=== PATIENT | female | born 1970 | race Caucasian/White ===

== ENCOUNTER 2018-10-04 09:38 | Inpatient (IN) | payer OTHER ==
[~2018-10-04] VITALS: Ht 177.8 cm; Wt 78.0 kg
[2018-10-04] MEDS ORDERED: ASPIRIN 81 MG TABLET CHEW ONE (10:24)
[2018-10-04] MEDS ORDERED: SODIUM CHLORIDE FLUSH 10ML SYR IVF ONE (10:30)
[2018-10-04] MEDS ORDERED: ASPIRIN 81 MG TABLET CHEW PO ONE (10:30)
[2018-10-04 10:37] LABS: BASOPHILS # (AUTO) 0.11 x10^3/uL (0-0.1); BASOPHILS % (AUTO) 2 % (0-1); EOSINOPHILS # (AUTO) 0.16 x10^3/uL (0-0.4); EOSINOPHILS % (AUTO) 2 % (1-7); LYMPHOCYTES # (AUTO) 2.05 x10^3/uL (1-3.4); LYMPHOCYTES % (AUTO) 29 % (22-44); MD NO; MEAN CORPUSCULAR HEMOGLOBIN 24.8 pg (27.0-34.8); MEAN CORPUSCULAR HGB CONC 32.3 g/dL (32.4-35.8); MEAN CORPUSCULAR VOLUME 76.8 fL (80-100); MEAN PLATELET VOLUME 8.9 fL (7.4-10.4); MONOCYTES # (AUTO) 0.48 x10^3/uL (0.2-0.8); MONOCYTES % (AUTO) 7 % (2-9); NEUTROPHILS % (AUTO) 60 % (42-75); PLATELET COUNT 353 x10^3/uL (130-400); RED CELL DISTRIBUTION WIDTH 18.5 % (9.6-15.2)
[2018-10-04 10:48] LABS: ALBUMIN 3.5 g/dL (3.4-5.0); ANION GAP 9 mmol/L (5-15); CALCIUM 8.7 mg/dL (8.5-10.1); CHLORIDE 107 mmol/L (98-107); CREATININE 0.74 mg/dL (0.55-1.02)
[2018-10-04 11:03] LABS: TROPONIN I 0.121 ng/mL (0.000-0.045)
[2018-10-04] MEDS ORDERED: NITROGLYCERIN OINT 2%, 1GM TP ONE ×2 (11:56→12:00)
[2018-10-04] MEDS ORDERED: GLUCAGON 1 MG IM PRN (12:00)
[2018-10-04] MEDS ORDERED: TEMAZEPAM 15 MG CAPSULE PO PRN (12:00)
[2018-10-04] MEDS ORDERED: LABETALOL 5MG/ML, 20ML IVPush PRN (12:00)
[2018-10-04] MEDS ORDERED: SODIUM CHLORIDE FLUSH 10ML SYR IVF PRN (12:00)
[2018-10-04] MEDS ORDERED: NITROGLYCERIN 0.4 MG BOTTLE (25 TABS) SL PRN (12:00)
[2018-10-04] MEDS ORDERED: ONDANSETRON ODT 4 MG PO PRN (12:00)
[2018-10-04] MEDS: NICOTINE 7 MG/24 HR PATCH.TD24 TD SCH (12:00)
[2018-10-04] MEDS ORDERED: DEXTROSE 4 GM TAB.CHEW PO PRN (12:00)
[2018-10-04] MEDS ORDERED: NITROGLYCERIN 0.4 MG/SPRAY SL PRN (12:00)
[2018-10-04] MEDS ORDERED: ENALAPRILAT 1.25 MG/ML, 2ML IVPush PRN (12:00)
[2018-10-04] MEDS: INSULIN LISPRO 100 UNITS/ML, PEN SQ-INSULIN SCH ×3 (12:00→21:18)
[2018-10-04] MEDS ORDERED: ONDANSETRON 2MG/ML, 2ML IVPush PRN (12:00)
[2018-10-04] MEDS ORDERED: DEXTROSE 50%, 50ML SYRINGE IVPush PRN (12:00)
[2018-10-04 12:50] VITALS: BP 200/109
[2018-10-04 13:01] LABS: TROPONIN I 0.123 ng/mL (0.000-0.045)
[2018-10-04 13:13] LABS: HEMOGLOBIN A1C 8.6 % (4.2-6.3)
[2018-10-04] MEDS ORDERED: LISINOPRIL 20 MG TABLET ONE (13:13)
[2018-10-04] MEDS: LISINOPRIL 20 MG TABLET PO SCH (13:16)
[2018-10-04 13:55] VITALS: BP 170/91
[2018-10-04] MEDS: ACETAMINOPHEN 325 MG TABLET PO PRN ×2 (16:05→21:18)
[2018-10-04 17:27] VITALS: BP 159/82
[2018-10-04 18:50] LABS: TROPONIN I 0.109 ng/mL (0.000-0.045)
[2018-10-04 19:24] VITALS: BP 110/72
[2018-10-04] MEDS ORDERED: ATORVASTATIN 80 MG TABLET PO SCH (21:00)
[2018-10-04 21:12] VITALS: BP 145/88
[2018-10-04] MEDS: METOPROLOL TARTRATE 50 MG TABLET PO SCH (21:18)
[2018-10-04] MEDS: SODIUM CHLORIDE FLUSH 10ML SYR IVF SCH (21:19)
[2018-10-05 00:40] VITALS: BP 150/84
[2018-10-05 04:52] LABS: BASOPHILS # (AUTO) 0.11 x10^3/uL (0-0.1); BASOPHILS % (AUTO) 1 % (0-1); EOSINOPHILS # (AUTO) 0.28 x10^3/uL (0-0.4); EOSINOPHILS % (AUTO) 4 % (1-7); LYMPHOCYTES # (AUTO) 2.66 x10^3/uL (1-3.4); LYMPHOCYTES % (AUTO) 36 % (22-44); MD NO; MEAN CORPUSCULAR HEMOGLOBIN 24.9 pg (27.0-34.8); MEAN CORPUSCULAR HGB CONC 32.2 g/dL (32.4-35.8); MEAN CORPUSCULAR VOLUME 77.5 fL (80-100); MEAN PLATELET VOLUME 9.1 fL (7.4-10.4); MONOCYTES % (AUTO) 8 % (2-9); NEUTROPHILS # (AUTO) 3.82 x10^3/uL (1.8-6.8); NEUTROPHILS % (AUTO) 51 % (42-75); PLATELET COUNT 341 x10^3/uL (130-400); RED BLOOD COUNT 4.34 x10^6/uL (3.82-5.3); RED CELL DISTRIBUTION WIDTH 17.6 % (9.6-15.2)
[2018-10-05 05:04] LABS: % IRON SATURATION 5 % (20-55); ANION GAP 8 mmol/L (5-15); CALCIUM 8.4 mg/dL (8.5-10.1); CHLORIDE 107 mmol/L (98-107); CHOLESTEROL, TOTAL 199 mg/dL (140-239); CREATININE 0.81 mg/dL (0.55-1.02); IRON LEVEL 20 mcg/dL (50-170); TOTAL IRON BINDING CAPACITY 418 mcg/dL (250-450); TRIGLYCERIDES 200 mg/dL (50-200); VLDL CHOLESTEROL 40 mg/dL (0-25)
[2018-10-05 05:11] LABS: CHOL/HDL RATIO 5.9; HDL CHOL % 17 % (28-40); HDL CHOLESTEROL (DIRECT) 34 mg/dL (40-60); LDL CHOLESTEROL,CALCULATED 125 mg/dL (54-169); LDL/HDL RATIO 3.7 (0.5-3.0)
[2018-10-05 05:52] VITALS: BP 155/85
[2018-10-05] MEDS ORDERED: ASPIRIN 325 MG TABLET EC PO SCH (06:00)
[2018-10-05 07:17] VITALS: BP 173/84
[2018-10-05] MEDS: LISINOPRIL 20 MG TABLET PO SCH (08:07)
[2018-10-05] MEDS: INSULIN LISPRO 100 UNITS/ML, PEN SQ-INSULIN SCH ×2 (08:07→11:49)
[2018-10-05] MEDS: SODIUM CHLORIDE FLUSH 10ML SYR IVF SCH (08:07)
[2018-10-05] MEDS ORDERED: REGADENOSON 0.4 MG/5 ML SYRINGE ONE (09:46)
[2018-10-05 11:45] VITALS: BP 175/101
[2018-10-05] MEDS: METOPROLOL TARTRATE 50 MG TABLET PO SCH (11:47)
[2018-10-05] MEDS: NICOTINE 7 MG/24 HR PATCH.TD24 TD SCH (12:00)
[2018-10-05 14:00] VITALS: BP 167/91
[2018-10-05] MEDS ORDERED: ASPI-650 PO (15:01)
[2018-10-05] MEDS ORDERED: ATOR-2 PO (15:01)
[2018-10-05] MEDS ORDERED: LISI-170 PO (15:01)
[2018-10-05] MEDS ORDERED: METO50TA82 PO (15:01)
[2018-10-05] MEDS ORDERED: NICO-485 TD (15:01)
== END 2018-10-05 16:03 | disposition home or self-care (01) | DRG 305 ==
LOC: ED 10:16 → EDIP 11:50 → 5SO 12:25 → EDIP 12:26 → 5SO 12:44
PROVIDERS: ADMIT Family Medicine; ATTEND Family Medicine
DX: I16.0 Hypertensive urgency (principal); Q21.1 Atrial septal defect; R07.9 Chest pain, unspecified; D50.9 Iron deficiency anemia, unspecified; E11.65 Type 2 diabetes mellitus with hyperglycemia; E78.5 Hyperlipidemia, unspecified; F12.90 Cannabis use, unspecified, uncomplicated; F17.210 Nicotine dependence, cigarettes, uncomplicated; I10 Essential (primary) hypertension; M54.5 Low back pain; F19.10 Other psychoactive substance abuse, uncomplicated; G89.29 Other chronic pain; I25.119 Atherosclerotic heart disease of native coronary artery with unspecified angina pectoris; I25.2 Old myocardial infarction; Z82.49 Family history of ischemic heart disease and other diseases of the circulatory system; Z91.14 Patient's other noncompliance with medication regimen; Z95.5 Presence of coronary angioplasty implant and graft
CPT/HCPCS: 36415; 71045; 78452; 80048; 80061; 82040; 82728; 82962; 83036; 83540; 83550; 83880; 84484; 85025; 93005; 93017; 93306; 99285; G0378; J2785; A9502; C9898; J1815